=== PATIENT | female | born 1935 | race Caucasian/White ===

== ENCOUNTER 2016-09-14 10:30 | Emergency (ER) | payer OTHER ==
[~2016-09-14] VITALS: Ht 157.5 cm; Wt 100.0 kg
[2016-09-14] VITALS (8 sets, daily range): BP systolic 108–120; BP diastolic 46–60; PULSE 76–88; RESP 16; TEMP 97.7; O2SAT 94–97
[~2016-09-14 10:30] MED LIST: HYDR50TA5 PO; LISI-363 PO; LORT5TAB PO; METO50TA OR; SIMV40TA OR
[2016-09-14] MEDS ORDERED: ONDANSETRON HCL 4 MG/2 ML VIAL IVP ONE (11:00)
[2016-09-14] MEDS ORDERED: SODIUM CHLORID 0.9% 500 ML INJ 500 ML IV ONE ×2 (11:00→13:30)
--- NOTE | 2016-09-14 11:00 | PD ---
HPI Chief Complaint: GI Complaint Time Seen by Provider: 10:39 Travel History International Travel<30 days: No Contact w/Intl Traveler<30days: No Traveled to known affect area: No History of Present Illness HPI The patient is a 81-year-old female who presents to the emergency department for nausea, vomiting, diarrhea. The patient states her symptoms started last night with sweating, she then developed nausea followed by vomiting approximately 5:30 AM. The patient also notes multiple episodes of diarrhea which she described as loose, watery, with possible dark-colored blood. However , she was not wearing her glasses and was unable to tell if there is any actual blood. She states she ate dinner last night with her , chicken, and he is currently asymptomatic. She denies any recent international travel or sick contacts at home. She does note nausea, vomiting, diarrhea, and an occasional intermittent abdominal cramping but denies any persistent pain. She does note chills and sweats, is unsure if she has been running a fever. She does have a history of aortic valve replacement that was performed several months ago at [facility] and also states she underwent cardiac catheterization by her engineering associate prior to the aortic valve repair, did not require stent placement. Family called EMS who arrived and checked the patient's blood pressure and EKG , noted that they were normal. Symptoms are moderate, there are no current alleviating or exacerbating factors. She does have a history of previous abdominal surgeries including cholecystectomy, appendectomy, and partial hysterectomy. PFSH Past Medical History High Cholesterol: Yes Diminished Hearing: No Hypertension: Yes Tetanus Vaccination: < 5 Years Past Surgical History Abdominal Surgery: Yes (CHRISTOPHER.) Appendectomy: Yes Cholecystectomy: Yes (30-35 yrs ago) Gynecologic Surgery: Yes (PARTIAL HYSTERECTOMY) Hysterectomy: Yes (30 yrs prior) Other Surgery: Yes (varicose veins ) Social History Alcohol Use: No Tobacco Use: No Substance Use: No Allergies-Medications (Allergen,Severity, Reaction): Coded Allergies: No Known Allergies (Verified , 09/14/16) Reported Meds & Prescriptions Reported Meds & Active Scripts Active Zofran Odt (Ondansetron Odt) 4 Mg Tab 4 Mg SL Q6HR PRN Reported D 1000 (Cholecalciferol) 1,000 Unit Tab 1 Tab PO DAILY B12 (Cyanocobalamin) 1,000 Mcg Tab 1 Tab PO DAILY One Daily Multivitamin (Multivitamin) 1 Each Tablet 1 Tab PO DAILY Fish Oil ([place]-3 Fatty Acids) Unknown Strength Capsule Unknown Dose PO DAILY Potassium Chloride ER (Potassium Chloride) 20 Meq Tab 20 Meq PO DAILY Clopidogrel (Clopidogrel Bisulfate) 75 Mg Tab 75 Mg PO DAILY Furosemide 20 Mg Tab 20 Mg PO DAILY Aspirin 81 Mg Chew 81 Mg CHEW DAILY Amlodipine (Amlodipine Besylate) 5 Mg Tab 5 Mg PO DAILY Citalopram (Citalopram Hydrobromide) 20 Mg Tab 20 Mg PO DAILY Hydrochlorothiazide 50 Mg Tab 50 Mg PO DAILY Lisinopril 20 Mg Tab 20 Mg PO DAILY Atorvastatin (Atorvastatin Calcium) 40 Mg Tab 40 Mg PO HS Review of Systems Except as stated in HPI: all other systems reviewed are Neg General / Constitutional: Positive: Chills, No: Fever HENT: Positive: Lightheadedness Cardiovascular: Positive: Diaphoresis, No: Chest Pain or Discomfort Respiratory: No: Shortness of Breath Gastrointestinal: Positive: Nausea, Vomiting, Diarrhea, Abdominal Pain ( cramping), Changes in Bowel Habits Genitourinary: No: Dysuria Musculoskeletal: Positive: Weakness Neurologic: No: Dizziness Physical Exam Narrative GENERAL: Awake, alert, pleasant 81-year-old female who appears her stated age and is in no acute respiratory distress. SKIN: Focused skin assessment warm/dry. HEAD: Atraumatic. Normocephalic. EYES: Pupils equal and round. No scleral icterus. No injection or drainage. ENT: No nasal bleeding or discharge. Mucous membranes pink and moist. NECK: Trachea midline. No JVD. CARDIOVASCULAR: Regular rate and rhythm. No murmur appreciated. RESPIRATORY: No accessory muscle use. Clear to auscultation. Breath sounds equal bilaterally. GASTROINTESTINAL: Abdomen soft, minimal epigastric tenderness. No rebound tenderness. No guarding or rigidity noted. MUSCULOSKELETAL: No obvious deformities. No clubbing. No cyanosis. No edema. NEUROLOGICAL: Awake and alert. No obvious cranial nerve deficits. Motor grossly within normal limits. Normal speech. PSYCHIATRIC: Appropriate mood and affect; insight and judgment normal. Data Data Last Documented VS Vital Signs Date Time Temp Pulse Resp B/P Pulse Ox O2 Delivery O2 Flow Rate FiO2 09/14/16 13:30 16 09/14/16 13:20 76 111/56 96 Room Air 09/14/16 10:35 97.7 Orders Complete Blood Count With Diff (09/14/16 10:49) Comprehensive Metabolic Panel (09/14/16 10:49) Lipase (09/14/16 10:49) Lactic Acid (09/14/16 10:49) Urinalysis - C+S If Indicated (09/14/16 10:49) Ct Abd/Pel W/O Iv Contrast (09/14/16 10:49) Iv Access Insert/Monitor (09/14/16 10:49) Ecg Monitoring (09/14/16 10:49) Oximetry (09/14/16 10:49) Ondansetron Inj (Zofran Inj) (09/14/16 11:00) Sodium Chloride 0.9% Flush (Ns Flush) (09/14/16 11:00) Electrocardiogram (09/14/16 10:49) Sodium Chlorid 0.9% 500 Ml Inj (Ns 500 M (09/14/16 11:00) Sodium Chlorid 0.9% 500 Ml Inj (Ns 500 M (09/14/16 13:30) Labs Laboratory Tests Test 09/14/16 09/14/16 09/14/16 11:40 12:00 13:30 White Blood Count 9.2 TH/MM3 Red Blood Count 3.32 MIL/MM3 Hemoglobin 9.8 GM/DL Hematocrit 29.4 % Mean Corpuscular Volume 88.6 FL Mean Corpuscular Hemoglobin 29.4 PG Mean Corpuscular Hemoglobin 33.2 % Concent Red Cell Distribution Width 12.5 % Platelet Count 210 TH/MM3 Mean Platelet Volume 9.3 FL Neutrophils (%) (Auto) 73.6 % Lymphocytes (%) (Auto) 18.1 % Monocytes (%) (Auto) 6.5 % Eosinophils (%) (Auto) 1.6 % Basophils (%) (Auto) 0.2 % Neutrophils # (Auto) 6.8 TH/MM3 Lymphocytes # (Auto) 1.7 TH/MM3 Monocytes # (Auto) 0.6 TH/MM3 Eosinophils # (Auto) 0.1 TH/MM3 Basophils # (Auto) 0.0 TH/MM3 CBC Comment DIFF FINAL Differential Comment Sodium Level 145 MEQ/L Potassium Level 4.3 MEQ/L Chloride Level 107 MEQ/L Carbon Dioxide Level 28.2 MEQ/L Anion Gap 10 MEQ/L Blood Urea Nitrogen 48 MG/DL Creatinine 1.10 MG/DL Estimat Glomerular Filtration 47 ML/MIN Rate Random Glucose 180 MG/DL Calcium Level 8.2 MG/DL Total Bilirubin 0.4 MG/DL Aspartate Amino Transf 38 U/L (AST/SGOT) Alanine Aminotransferase 44 U/L (ALT/SGPT) Alkaline Phosphatase 56 U/L Total Protein 6.1 GM/DL Albumin 3.2 GM/DL Lipase 186 U/L Lactic Acid Level 2.3 mmol/L Urine Collection Type CLEAN CATCH Urine Color YELLOW Urine Turbidity SLIGHT Urine pH 6.0 Urine Specific [place] 1.020 Urine Protein NEG mg/dL Urine Glucose (UA) NEG mg/dL Urine Ketones NEG mg/dL Urine Occult Blood NEG Urine Nitrite NEG Urine Bilirubin NEG Urine Leukocyte Esterase NEG Urine Squamous Epithelial > 8 /hpf Cells Urine Transitional Epithelial 6-8 /hpf Cells Urine Amorphous Sediment MOD Microscopic Urinalysis Comment CATH-CULT NOT IND Urine Collection Time 1330 MDM Medical Decision Making Medical Screen Exam Complete: Yes Emergency Medical Condition: Yes Medical Record Reviewed: Yes Interpretation(s) EKG reveals normal sinus rhythm with a rate 83. Low QRS voltage in the extremity leads. Last Impressions Abdomen/Pelvis CT 09/14/16 1049 Signed Impressions: Service Date/Time: Monday, September 14, 2016 11:03 - CONCLUSION: 1. Moderate sigmoid diverticulosis and scattered colonic diverticula out the colon. No definitive inflammatory change to suggest significant diverticulitis at this time, as questioned. 2. No definitive CT findings to explain patient's symptoms. 3. Stable 2.5 x 1.9 cm calcified left upper quadrant mass which appears to communicate with the gastric fundus and likely reflects a diverticulum. 4. 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 Generally sub-2 cm aneurysms do not require treatment, particularly given patient's age and interval long-term stability. 5. Stable 2 cm right renal cyst and 11 mm low density lesion in the left lobe of the liver which is too small to fully characterize but statistically reflects a cyst. Fredi Graham MD Laboratory Tests Test 09/14/16 09/14/16 09/14/16 11:40 12:00 13:30 White Blood Count 9.2 TH/MM3 Red Blood Count 3.32 MIL/MM3 Hemoglobin 9.8 GM/DL Hematocrit 29.4 % Mean Corpuscular Volume 88.6 FL Mean Corpuscular Hemoglobin 29.4 PG Mean Corpuscular Hemoglobin 33.2 % Concent Red Cell Distribution Width 12.5 % Platelet Count 210 TH/MM3 Mean Platelet Volume 9.3 FL Neutrophils (%) (Auto) 73.6 % Lymphocytes (%) (Auto) 18.1 % Monocytes (%) (Auto) 6.5 % Eosinophils (%) (Auto) 1.6 % Basophils (%) (Auto) 0.2 % Neutrophils # (Auto) 6.8 TH/MM3 Lymphocytes # (Auto) 1.7 TH/MM3 Monocytes # (Auto) 0.6 TH/MM3 Eosinophils # (Auto) 0.1 TH/MM3 Basophils # (Auto) 0.0 TH/MM3 CBC Comment DIFF FINAL Differential Comment Sodium Level 145 MEQ/L Potassium Level 4.3 MEQ/L Chloride Level 107 MEQ/L Carbon Dioxide Level 28.2 MEQ/L Anion Gap 10 MEQ/L Blood Urea Nitrogen 48 MG/DL Creatinine 1.10 MG/DL Estimat Glomerular Filtration 47 ML/MIN Rate Random Glucose 180 MG/DL Calcium Level 8.2 MG/DL Total Bilirubin 0.4 MG/DL Aspartate Amino Transf 38 U/L (AST/SGOT) Alanine Aminotransferase 44 U/L (ALT/SGPT) Alkaline Phosphatase 56 U/L Total Protein 6.1 GM/DL Albumin 3.2 GM/DL Lipase 186 U/L Lactic Acid Level 2.3 mmol/L Urine Collection Type CLEAN CATCH Urine Color YELLOW Urine Turbidity SLIGHT Urine pH 6.0 Urine Specific Nicholson 1.020 Urine Protein NEG mg/dL Urine Glucose (UA) NEG mg/dL Urine Ketones NEG mg/dL Urine Occult Blood NEG Urine Nitrite NEG Urine Bilirubin NEG Urine Leukocyte Esterase NEG Urine Squamous Epithelial > 8 /hpf Cells Urine Transitional Epithelial 6-8 /hpf Cells Urine Amorphous Sediment MOD Microscopic Urinalysis Comment CATH-CULT NOT IND Urine Collection Time 1330 Differential Diagnosis Differential diagnosis includes gastroenteritis, colitis, enteritis, viral syndrome, food poisoning, dehydration, electrolyte abnormality, aortoenteric fistula, pancreatitis, partial small bowel obstruction. Narrative Course IV was established, labs are drawn and sent, and the patient was placed on cardiac telemetry monitoring and continuous pulse oximetry monitoring. EKG was ordered and interpreted. The patient was administered normal saline 500 cc and Zofran 4 mg intravenously. The patient's BUN and creatinine were elevated, I reviewed the EMR, her creatinine is baseline, GFR is been in the 40s. Lactic acid is mildly elevated at 2.3, may be secondary to mild dehydration secondary to her vomiting and diarrhea. The patient is currently afebrile. White count is unremarkable, patient is mildly anemic with a hemoglobin 9.8. CT reveals chronic changes, no acute findings to suggest colitis, enteritis, or diverticulitis. The patient was reassessed. The patient's symptoms were improving. The patient was administered another bolus of normal saline 500 cc. UA was sent to lab. Diagnosis Primary Impression: Gastroenteritis Patient Instructions: General Instructions Additional Instructions: Zofran as needed for nausea/vomiting. Fluids to keep hydrated. Monitor urine output. Clear liquid diet and advance as tolerated. Follow-up with your primary physician. Please provide the patient a copy of her CT results and lab results at discharge. Med/Other Pt SpecificInfo: Prescription(s) given Scripts Ondansetron Odt (Zofran Odt)4 Mg Tab4 Mg SL Q6HR PRN (Nausea/Vomiting) #10 TAB Ref 0 Prov:Peewee Banuelos MD 09/14/16 Disposition: DISCHARGE HOME Condition: Stable Peewee Banuelos MD Sep 14, 2016 11:00
[2016-09-14] MEDS ORDERED: ATOR40TA16 PO (11:05)
[2016-09-14] MEDS ORDERED: ASPI81CH CHEW (11:16)
[2016-09-14] MEDS ORDERED: VITA100T67 (11:16)
[2016-09-14] MEDS ORDERED: CLOP75TA PO (11:16)
[2016-09-14] MEDS ORDERED: CYAN1TAB24 PO (11:16)
[2016-09-14] MEDS ORDERED: LISI-515 PO (11:16)
[2016-09-14] MEDS ORDERED: VITA1000 PO (11:16)
[2016-09-14] MEDS ORDERED: OMEG300C5 PO (11:16)
[2016-09-14] MEDS ORDERED: POTA-163 PO (11:16)
[2016-09-14] MEDS ORDERED: CITA20TA4 PO (11:16)
[2016-09-14] MEDS ORDERED: HYDR50TA3 PO (11:16)
[2016-09-14] MEDS ORDERED: FURO20TA PO (11:16)
[2016-09-14] MEDS ORDERED: ONE-TAB14 PO (11:16)
[2016-09-14] MEDS ORDERED: AMLO5TAB2 PO (11:16)
[2016-09-14] MEDS ORDERED: VITA100C4 PO (11:18)
--- NOTE | 2016-09-14 11:50 | RADRPT ---
EXAM DATE/TIME: 09/14/2016 11:03 [facility] COMPARISON: CT ABDOMEN & PELVIS W CONTRAST, July 06, 2012, 11:54. INDICATIONS : Nausea, vomiting and diarrhea. Evaluate for diverticulitis. ORAL CONTRAST: No oral contrast ingested. RADIATION DOSE: 21.62 CTDIvol (mGy) MEDICAL HISTORY : Hypertension. Cardiovascular disease SURGICAL HISTORY : Appendectomy. Cholecystectomy.Hysterectomy. ENCOUNTER: Initial ACUITY: 1 day PAIN SCALE: 0/10 LOCATION: Abdomen TECHNIQUE: Volumetric scanning of the abdomen and pelvis was performed. Using automated exposure control and ad justment of the mA and/or kV according to patient size, radiation dose was kept as low as reasonably achievable to obtain optimal diagnostic quality images. FINDINGS: LOWER LUNGS: The visualized lower lungs are clear. LIVER: 11 mm low density lesion which appears unchanged in the left lobe. Otherwise, homogeneous. There is n o dilation of the biliary tree. Gallbladder is surgically absent. SPLEEN: Subcentimeter calcified probable splenic artery aneurysm near the splenic hilum. Spleen is otherwise unremarkable. PANCREAS: Within normal limits. KIDNEYS: Stable 1.6 x 2.1 cm cyst arising from the superior pole of the right kidney. Kidneys are otherwise sy mmetrical in size without evidence for radiopaque renal calculi or hydronephrosis. No additional sign ificant contour deforming abnormalities. ADRENAL GLANDS: Within normal limits. VASCULAR: There is no aortic aneurysm. BOWEL/MESENTERY: Redemonstration of a 2.5 x 1.9 cm calcified mass in the left upper quadrant which appears to extend t o the gastric fundus likely reflecting a diverticulum. Redemonstration of moderate sigmoid diverticul osis without inflammatory changes to suggest diverticulitis. There are scattered diverticula througho ut the colon. Again, no significant inflammatory change to suggest diverticulitis. The appendix is link rgically absent. No free fluid or drainable fluid collection in the abdomen. ABDOMINAL WALL: Within normal limits. RETROPERITONEUM: There is no lymphadenopathy. BLADDER: No wall thickening or mass. REPRODUCTIVE: Uterus is surgically absent. INGUINAL: There is no lymphadenopathy or hernia. MUSCULOSKELETAL: Probable hemangioma in L5 vertebral body. Degenerative changes of the lower lumbar spine. CONCLUSION: 1. Moderate sigmoid diverticulosis and scattered colonic diverticula out the colon. No definitive inf lammatory change to suggest significant diverticulitis at this time, as questioned. 2. No definitive CT findings to explain patient's symptoms. 3. Stable 2.5 x 1.9 cm calcified left upper quadrant mass which appears to communicate with the gastr ic fundus and likely reflects a diverticulum. 4. 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 Generally sub-2 cm aneurysms do not require treatment, particularly given patient's age and interval long-term stability. 5. Stable 2 cm right renal cyst and 11 mm low density lesion in the left lobe of the liver which is t oo small to fully characterize but statistically reflects a cyst. Fredi Graham MD on September 14, 2016 at 11:32 Board Certified Radiologist. This report was verified electronically.
--- NOTE | 2016-09-14 11:57 | EKG ---
Date Performed: 09/14/2016 Time Performed: 11:05:56 PTAGE: 81 years EKG: Sinus rhythm LOW QRS VOLTAGE IN EXTREMITY LEADS BORDERLINE ECG NO PREVIOUS TRACING DOCTOR: Doron Camacho Interpretating Date/Time 09/14/2016 11:56:50
[2016-09-14 11:59] LABS: AUTOMATED NEUTROPHIL # 6.8 TH/MM3 (1.8-7.7); BASOPHIL % 0.2 % (0.0-2.0); EOSINOPHIL # 0.1 TH/MM3 (0-0.4); EOSINOPHIL % 1.6 % (0.0-4.0); HEMATOCRIT 29.4 % (35.0-46.0); HEMO FLAGS DIFF FINAL; LYMPH % 18.1 % (9.0-44.0); LYMPHOCYTE # 1.7 TH/MM3 (1.0-4.8); MEAN CELL VOLUME 88.6 FL (80.0-100.0); MEAN CORPUSCULAR HEMOGLOBIN 29.4 PG (27.0-34.0); MEAN CORPUSCULAR HGB CONC 33.2 % (32.0-36.0); MONO % 6.5 % (0.0-8.0); NEUT % 73.6 % (16.0-70.0); PLATELET COUNT 210 TH/MM3 (150-450); RED BLOOD COUNT 3.32 MIL/MM3 (4.00-5.30); RED CELL DISTRIBUTION WIDTH 12.5 % (11.6-17.2); WHITE BLOOD COUNT 9.2 TH/MM3 (4.0-11.0)
[2016-09-14 12:05] LABS: CHLORIDE 107 MEQ/L (98-107); POTASSIUM 4.3 MEQ/L (3.5-5.1); SODIUM (NA) 145 MEQ/L (136-145)
[2016-09-14] MEDS: SODIUM CHLORIDE 0.9% FLUSH 10 ML FLUSH IV FLUSH PRN ×2 (12:07→13:36)
[2016-09-14 12:09] LABS: ANION GAP 10 MEQ/L (5-15); BICARBONATE 28.2 MEQ/L (21.0-32.0); BLOOD UREA NITROGEN 48 MG/DL (7-18)
[2016-09-14 12:12] LABS: ALT (GPT) 44 U/L (10-53); AST (GOT) 38 U/L (15-37); GLOMERULAR FILTRATION RATE 47 ML/MIN (>89)
[2016-09-14 12:13] LABS: TOTAL BILIRUBIN ADULT 0.4 MG/DL (0.2-1.0)
[2016-09-14 12:15] LABS: ALKALINE PHOSPHATASE 56 U/L (45-117)
[2016-09-14] MEDS ORDERED: ZOFR4TAB3 SL (13:30)
[2016-09-14 13:47] LABS: BLOOD, URINE NEG (NEG); GLUCOSE,URINE NEG (NEG); KETONE, URINE NEG (NEG); NITRITE,URINE NEG (NEG)
[2016-09-14 13:52] LABS: METHOD OF COLLECTION CLEAN CATCH; URINE COLOR YELLOW (YELLW/STRAW)
[2016-09-14 13:54] LABS: CULTURE IF INDICATED CATH CULTURE NOT IND; SQUAMOUS EPITHELIAL CELL URINE > 8 /hpf (0-5)
[2016-09-14 13:55] LABS: COMMENT (UR) CATH-CULT NOT IND; COMMENT2 (UR) MUCOUS PRESENT
== END 2016-09-14 15:37 | disposition home or self-care (01) ==
LOC: PHED 10:30
DX: K52.9 Noninfective gastroenteritis and colitis, unspecified (principal); E78.00 Pure hypercholesterolemia, unspecified; Z95.2 Presence of prosthetic heart valve; R61 Generalized hyperhidrosis; R94.31 Abnormal electrocardiogram [ECG] [EKG]
CPT/HCPCS: 74176; 80053; 81001; 83605; 83690; 85025; 93005; 96361; 96374; 99285; J2405; J7040

== ENCOUNTER 2016-12-29 12:38 | Emergency (ER) | payer OTHER ==
[~2016-12-29] VITALS: Ht 157.5 cm; Wt 96.0 kg
[~2016-12-29 12:38] MED LIST changes: +AMLO5TAB2 PO; +ASPI81CH CHEW; +ATOR40TA16 PO; +CITA20TA4 PO; +CLOP75TA PO; +CYAN1TAB24 PO; +FURO20TA PO; +HYDR50TA3 PO; -HYDR50TA5 PO; -LISI-363 PO; +LISI-515 PO; -LORT5TAB PO; -METO50TA OR; +OMEG300C5 PO; +ONE-TAB14 PO; +POTA-163 PO; -SIMV40TA OR; +VITA1000 PO; +ZOFR4TAB3 SL
[2016-12-29 12:45] VITALS: BP 199/94; PULSE 84; RESP 16; TEMP 98.2; O2SAT 95
[2016-12-29] MEDS ORDERED: FERR325C PO (12:57)
[2016-12-29] MEDS ORDERED: LEVOTAB PO (12:57)
[2016-12-29] MEDS ORDERED: FISHCAP4 PO (12:57)
[2016-12-29] MEDS ORDERED: FURO20TA PO (12:57)
[2016-12-29] MEDS ORDERED: VITA100021 SL (12:57)
--- NOTE | 2016-12-29 13:03 | PD ---
HPI Chief Complaint: Respiratory Symptoms Time Seen by Provider: 12:41 Travel History International Travel<30 days: No Contact w/Intl Traveler<30days: No Traveled to known affect area: No History of Present Illness HPI This 81-year-old female is complaining of shortness of breath. She says this been going on since yesterday. She has had trouble breathing at times in the past. She has never smoked. She does have a transient aortic aortic valve replacement done in [place] on July 05. She is on 2 water pills. She has not had any fever or chills. She is not having any chest pain. He has been having some pain in her left ear. She says she seems to get a lot of pain in her left ear and no problems ever found with it. There has not been any fever. There's been no sputum production PFSH Past Medical History Autoimmune Disease: No High Cholesterol: Yes Diminished Hearing: No Headaches: Yes Hypertension: Yes Menopausal: Yes Past Surgical History Abdominal Surgery: Yes (CHRISTOPHER.) Appendectomy: Yes Body Medical Devices: bovine transcatheter heart valve Cardiac Surgery: Yes (aortic valve replacement 06/2016) Cholecystectomy: Yes Gynecologic Surgery: Yes (PARTIAL HYSTERECTOMY) Hysterectomy: Yes (partial) Valve Replacement: Yes Other Surgery: Yes (varicose veins) Social History Alcohol Use: No Tobacco Use: No Substance Use: No Allergies-Medications (Allergen,Severity, Reaction): Coded Allergies: No Known Allergies (Verified , 09/14/16) Reported Meds & Prescriptions Reported Meds & Active Scripts Active Reported Furosemide 20 Mg Tab 10 Mg PO DAILY Fish Oil + D3 (Fish Oil-Cholecalciferol) 1,200-1,000 Mg-Unit Cap 1 Cap PO DAILY Vitamin B-12 (Cyanocobalamin) 1,000 Mcg Subl 1,000 Mcg SL DAILY Iron (Ferrous Sulfate) 325 Mg Cap 65 Mg PO DAILY Levocetirizine 5 Mg Tab 5 Mg PO DAILY One Daily Multivitamin (Multivitamin) 1 Each Tablet 1 Tab PO DAILY Potassium Chloride ER (Potassium Chloride) 20 Meq Tab 20 Meq PO DAILY Clopidogrel (Clopidogrel Bisulfate) 75 Mg Tab 75 Mg PO DAILY Aspirin 81 Mg Chew 81 Mg CHEW DAILY Amlodipine (Amlodipine Besylate) 5 Mg Tab 5 Mg PO DAILY Citalopram (Citalopram Hydrobromide) 20 Mg Tab 20 Mg PO DAILY Hydrochlorothiazide 50 Mg Tab 50 Mg PO DAILY Lisinopril 20 Mg Tab 20 Mg PO DAILY Atorvastatin (Atorvastatin Calcium) 40 Mg Tab 40 Mg PO HS Review of Systems General / Constitutional: No: Fever, Chills Eyes: No: Diploplia, Blurred Vision HENT: No: Headaches, Vertigo Cardiovascular: No: Chest Pain or Discomfort, Palpitations, Irregular Rhythm, Edema Respiratory: Positive: Shortness of Breath Gastrointestinal: No: Nausea, Vomiting Genitourinary: No: Urgency, Frequency Musculoskeletal: No: Myalgias, Arthralgias Skin: No Rash, No Itching Neurologic: No: Weakness Physical Exam Narrative GENERAL: A little female SKIN: Focused skin assessment warm/dry. HEAD: Atraumatic. Normocephalic. EYES: Pupils equal and round. No scleral icterus. No injection or drainage. ENT: No nasal bleeding or discharge. Mucous membranes pink and moist. NECK: Trachea midline. No JVD. CARDIOVASCULAR: Regular rate and rhythm. Faint systolic murmur appreciated. RESPIRATORY: No accessory muscle use. Clear to auscultation. Breath sounds equal bilaterally. GASTROINTESTINAL: Abdomen soft, non-tender, nondistended. Hepatic and splenic margins not palpable. MUSCULOSKELETAL: No obvious deformities. No clubbing. No cyanosis. No edema. NEUROLOGICAL: Awake and alert. No obvious cranial nerve deficits. Motor grossly within normal limits. Normal speech. PSYCHIATRIC: Appropriate mood and affect; insight and judgment normal. Data Data Last Documented VS Vital Signs Date Time Temp Pulse Resp B/P (MAP) Pulse Ox O2 Delivery O2 Flow Rate FiO2 12/29/16 12:47 95 Room Air 12/29/16 12:45 98.2 84 16 199/94 (129) Orders Orders Electrocardiogram (12/29/16 12:55) Complete Blood Count With Diff (12/29/16 12:55) Comprehensive Metabolic Panel (12/29/16 12:55) Troponin I (12/29/16 12:55) B-Type Natriuretic Peptide (12/29/16 12:55) Chest, Single Ap (12/29/16 12:55) Ct Pulmonary Angiogram (12/29/16 13:45) Iohexol 350 Inj (Omnipaque 350 Inj) (12/29/16 14:35) Labs Laboratory Tests Test 12/29/16 13:04 White Blood Count 9.7 TH/MM3 Red Blood Count 5.09 MIL/MM3 Hemoglobin 13.9 GM/DL Hematocrit 42.5 % Mean Corpuscular Volume 83.5 FL Mean Corpuscular Hemoglobin 27.4 PG Mean Corpuscular Hemoglobin Concent 32.8 % Red Cell Distribution Width 14.5 % Platelet Count 213 TH/MM3 Mean Platelet Volume 8.9 FL Neutrophils (%) (Auto) 62.1 % Lymphocytes (%) (Auto) 26.3 % Monocytes (%) (Auto) 8.6 % Eosinophils (%) (Auto) 2.1 % Basophils (%) (Auto) 0.9 % Neutrophils # (Auto) 6.1 TH/MM3 Lymphocytes # (Auto) 2.5 TH/MM3 Monocytes # (Auto) 0.8 TH/MM3 Eosinophils # (Auto) 0.2 TH/MM3 Basophils # (Auto) 0.1 TH/MM3 CBC Comment DIFF FINAL Differential Comment Blood Urea Nitrogen 23 MG/DL Creatinine 1.20 MG/DL Random Glucose 91 MG/DL Total Protein 8.1 GM/DL Albumin 4.4 GM/DL Calcium Level 10.1 MG/DL Alkaline Phosphatase 77 U/L Aspartate Amino Transf (AST/SGOT) 40 U/L Alanine Aminotransferase (ALT/SGPT) 54 U/L Total Bilirubin 0.5 MG/DL Sodium Level 136 MEQ/L Potassium Level 3.5 MEQ/L Chloride Level 98 MEQ/L Carbon Dioxide Level 30.6 MEQ/L Anion Gap 7 MEQ/L Estimat Glomerular Filtration Rate 43 ML/MIN Troponin I 0.02 NG/ML B-Type Natriuretic Peptide 119 PG/ML MDM Medical Decision Making Medical Screen Exam Complete: Yes Emergency Medical Condition: Yes Medical Record Reviewed: Yes Differential Diagnosis Differential includes CHF, pneumonia, COPD Narrative Course Chest x-rays read as normal. EKG shows normal sinus rhythm. BNP is 112. Hemoglobin 13.9. Etiology for the dyspnea was not found so a CTA was ordered. There is no evidence for pulmonary embolus. There is mild emphysema and evidence of aortic valve replacement. Patient has been stable in the ER with saturation 94-95%. She will be released. I will recommend that she follow up with Dr. Monique for evaluation for aortic valve Diagnosis Primary Impression: Dyspnea, unspecified Qualified Codes: R06.00 - Dyspnea, unspecified Additional Impression: H/O aortic valve replacement Additional Instructions: Follow-up with Dr. Monique Disposition: 01 DISCHARGE HOME Condition: Stable Suleiman Bateman MD Dec 29, 2016 13:03
[2016-12-29 13:12] LABS: AUTOMATED NEUTROPHIL # 6.1 TH/MM3 (1.8-7.7); BASOPHIL # 0.1 TH/MM3 (0-0.2); BASOPHIL % 0.9 % (0.0-2.0); EOSINOPHIL # 0.2 TH/MM3 (0-0.4); EOSINOPHIL % 2.1 % (0.0-4.0); HEMATOCRIT 42.5 % (35.0-46.0); HEMO FLAGS DIFF FINAL; LYMPH % 26.3 % (9.0-44.0); LYMPHOCYTE # 2.5 TH/MM3 (1.0-4.8); MEAN CELL VOLUME 83.5 FL (80.0-100.0); MEAN CORPUSCULAR HEMOGLOBIN 27.4 PG (27.0-34.0); MEAN CORPUSCULAR HGB CONC 32.8 % (32.0-36.0); MONO % 8.6 % (0.0-8.0); NEUT % 62.1 % (16.0-70.0); PLATELET COUNT 213 TH/MM3 (150-450); RED BLOOD COUNT 5.09 MIL/MM3 (4.00-5.30); RED CELL DISTRIBUTION WIDTH 14.5 % (11.6-17.2); WHITE BLOOD COUNT 9.7 TH/MM3 (4.0-11.0)
[2016-12-29 13:28] LABS: CHLORIDE 98 MEQ/L (98-107); POTASSIUM 3.5 MEQ/L (3.5-5.1); SODIUM (NA) 136 MEQ/L (136-145)
[2016-12-29 13:31] LABS: ANION GAP 7 MEQ/L (5-15); BICARBONATE 30.6 MEQ/L (21.0-32.0); BLOOD UREA NITROGEN 23 MG/DL (7-18)
[2016-12-29 13:34] LABS: ALT (GPT) 54 U/L (10-53); GLOMERULAR FILTRATION RATE 43 ML/MIN (>89)
[2016-12-29 13:35] LABS: AST (GOT) 40 U/L (15-37)
[2016-12-29 13:36] LABS: TOTAL BILIRUBIN ADULT 0.5 MG/DL (0.2-1.0)
[2016-12-29 13:37] LABS: ALKALINE PHOSPHATASE 77 U/L (45-117)
--- NOTE | 2016-12-29 13:45 | RADRPT ---
EXAM DATE/TIME: 12/29/2016 13:26 [facility] COMPARISON: No previous studies available for comparison. INDICATIONS : Short of breath. MEDICAL HISTORY : Hypertension. Hypercholesterolemia. SURGICAL HISTORY : aortic valve replacement ENCOUNTER: Initial ACUITY: 2 days PAIN SCORE: 0/10 LOCATION: Bilateral chest FINDINGS: A single view of the chest demonstrates the lungs to be symmetrically aerated without evidence of mas s, infiltrate or effusion. The cardiomediastinal contours are unremarkable. An aortic valve prosthe sis is noted in place. There are multiple overlying electrocardiogram leads. Osseous structures are i ntact. CONCLUSION: No acute disease. Scott Cortes MD on December 29, 2016 at 13:43 Board Certified Radiologist. This report was verified electronically.
[2016-12-29] MEDS ORDERED: IOHEXOL 350 MG/ML 10 ML VIAL (for RAD DIAG) IVCONTRAST ONE (14:35)
--- NOTE | 2016-12-29 14:44 | RADRPT ---
EXAM DATE/TIME: 12/29/2016 14:26 [place] COMPARISON: No previous studies available for comparison. INDICATIONS : Short of breath. IV CONTRAST: 75 cc Omnipaque 350 (iohexol) IV RADIATION DOSE: 20.23 CTDIvol (mGy) MEDICAL HISTORY : Cardiovascular disease. Hypertension. SURGICAL HISTORY : Appendectomy. Cholecystectomy.Aortic valve replacement. ENCOUNTER: Initial ACUITY: 1 day PAIN SCALE: 0/10 LOCATION: chest TECHNIQUE: Volumetric scanning of the chest was performed using a pulmonary embolism protocol MIP images were re constructed. Using automated exposure control and adjustment of the mA and/or kV according to patien t size, radiation dose was kept as low as reasonably achievable to obtain optimal diagnostic quality images. DICOM format image data is available electronically for review and comparison. Follow-up recommendations for detected pulmonary nodules are based at a minimum on nodule size and pa tient risk factors according to Fleischner Society Guidelines. FINDINGS: PULMONARY ARTERIES: No filling defects are seen in the pulmonary arteries through the segmental level. LUNGS: There is no consolidation or pneumothorax . No concerning pulmonary nodule is visualized. Subtle candace undglass densities are seen with areas of lucency predominantly in the lung bases. PLEURAE: There is no pleural thickening or pleural effusion. MEDIASTINUM: There is good visualization of the great vessels of the middle mediastinum. No evidence of mediastin al or hilar adenopathy/mass. Aortic valve replacement. MUSCULOSKELETAL: Within normal limits for patient age. MISCELLANEOUS: The visualized upper abdominal organs demonstrate no acute abnormality. There are some calcified dens ities in the left upper abdomen adjacent to the spleen likely lymph nodes. CONCLUSION: 1. No evidence for pulmonary embolism. 2. Mild emphysema and some slight mosaic attenuation which can be seen with small airway disease. 3. Aortic valve replacement. Amaury Boyer MD on December 29, 2016 at 14:39 Board Certified Radiologist. This report was verified electronically.
--- NOTE | 2016-12-30 12:29 | EKG ---
Date Performed: 12/29/2016 Time Performed: 13:03:47 PTAGE: 81 years EKG: Sinus rhythm LOW QRS VOLTAGE IN EXTREMITY LEADS Poor R-wave progression ABNORMAL ECG PREVIOUS TRACING : 09/14/2016 11.05 DOCTOR: Roger Villegas Interpretating Date/Time 12/30/2016 12:28:28
== END 2016-12-29 15:11 | disposition home or self-care (01) ==
LOC: PHED 12:38
DX: R06.00 Dyspnea, unspecified (principal); Z95.2 Presence of prosthetic heart valve; E78.00 Pure hypercholesterolemia, unspecified; I10 Essential (primary) hypertension
CPT/HCPCS: 71010; 71275; 80053; 83880; 84484; 85025; 93005; 99285; Q9967